=== PATIENT | female | born 1980 | race Hispanic/Latino ===

== ENCOUNTER 2024-09-07 09:11 | Emergency (ER) | payer BC ==
[~2024-09-07] VITALS: Ht 167.6 cm; Wt 74.8 kg
[2024-09-07 09:20] VITALS: TEMP 98.4
[2024-09-07] MEDS: SODIUM CHLORIDE 0.9% 1000ML 1,000 ML IV STA (10:17)
[2024-09-07] MEDS: ONDANSETRON HCL INJ 2MG/ML 2ML 2 MG/ML VIAL IV STA (10:18)
[2024-09-07] MEDS: Morphine 4mg INJECTION 4 MG/ML INJ IV STA (10:18)
[2024-09-07 10:24] LABS: BASOPHILS # (AUTO) 0.1 (0.0-0.1); BASOPHILS % 0.6 % (0.0-1.0); EOSINOPHILS # (AUTO) 0.3 (0.0-0.4); EOSINOPHILS % 4.3 % (0.0-6.0); HEMOGLOBIN 12.1 g/dL (12.0-16.0); LYMPHOCYTES # (AUTO) 1.3 (1.0-3.2); MEAN CORPUSCULAR HGB CONC 31.8 g/dL (31-35); MEAN CORPUSCULAR VOLUME 91.1 fL (81-99); MONOCYTES # (AUTO) 0.5 (0.2-0.8); MONOCYTES % 6.5 % (4.4-11.3); NEUTROPHILS # (AUTO) 5.6 (2.1-6.9); NEUTROPHILS % 71.5 % (38.7-80.0); PLATELET COUNT 289 x10e3/uL (140-360); RED BLOOD COUNT 4.17 x10e6/uL (3.6-5.1); RED CELL DISTRIBUTION WIDTH 19.7 % (11.7-14.4); WHITE BLOOD COUNT 7.84 x10e3/uL (4.8-10.8)
[2024-09-07 10:56] LABS: INR 0.89; PROTHROMBIN TIME 12.6 seconds (11.9-14.5)
[2024-09-07 10:57] LABS: PARTIAL THROMBOPLASTIN TIME 27.9 seconds (23.8-35.5)
[2024-09-07 11:03] LABS: ALANINE AMINOTRANSFERASE 21 IU/L (0-55); ALBUMIN 4.3 g/dL (3.5-5.0); ALBUMIN/GLOBULIN RATIO 1.1 (0.8-2.0); ALKALINE PHOSPHATASE 58 IU/L (40-150); ANION GAP 14.7 mmol/L (8-16); BILIRUBIN,TOTAL 0.4 mg/dL (0.2-1.2); BLOOD UREA NITROGEN 16 mg/dL (7-26); BUN/CREATININE RATIO 18 (6-25); CALCIUM 9.7 mg/dL (8.4-10.2); CARBON DIOXIDE 22 mmol/L (22-29); CHLORIDE 104 mmol/L (98-107); CREATININE, SERUM 0.87 mg/dL (0.57-1.11); EST GLOMERULAR FILTRATION RATE 83 ML/MIN (>=60); GLUCOSE 105 mg/dL (74-118); POTASSIUM 3.7 mmol/L (3.5-5.1); SODIUM 137 mmol/L (136-145); TOTAL PROTEIN 8.3 g/dL (6.5-8.1)
[2024-09-07] MEDS ORDERED: IOPAMIDOL 370 MG/ML 100 ML INFUS..BTL INJ ONE (11:21)
[2024-09-07 12:02] VITALS: PULSE 80; RESP 18
[2024-09-07] MEDS ORDERED: DICYCLOMINE HCL20 MG PO (12:54)
[2024-09-07 13:12] VITALS: BP 135/70; PULSE 76; RESP 16; TEMP 98.4; O2SAT 99
== END 2024-09-07 13:19 | disposition home or self-care (01) ==
LOC: ER 09:30
DX: N92.0 Excessive and frequent menstruation with regular cycle (principal); R10.31 Right lower quadrant pain
CPT/HCPCS: 36415; 74177; 80053; 84702; 85025; 85610; 85730; 86850; 86900; 99284; J2270; J2405; J7030; Q9967

== ENCOUNTER 2024-09-11 14:56 | Emergency (ER) | payer BC ==
[~2024-09-11] VITALS: Ht 167.6 cm; Wt 74.8 kg
[~2024-09-11 14:56] MED LIST: DICYCLOMINE HCL20 MG PO
[2024-09-11 15:08] VITALS: PULSE 82; RESP 16; TEMP 98.7
[2024-09-11] MEDS ORDERED: AMOX TR-K CLV1 EAC2 PO (15:41)
[2024-09-11 16:22] VITALS: BP 135/67; PULSE 90; RESP 17; TEMP 98.6; O2SAT 98
== END 2024-09-11 16:04 | disposition home or self-care (01) ==
LOC: ER 15:18
DX: R05.9 Cough, unspecified (principal); J32.9 Chronic sinusitis, unspecified; I10 Essential (primary) hypertension; E11.9 Type 2 diabetes mellitus without complications
CPT/HCPCS: 99283